=== PATIENT | female | born 1990 | race Caucasian/White ===

== ENCOUNTER 2017-01-24 11:03 | Emergency (ER) | payer OTHER ==
[2017-01-24 11:07] VITALS: TEMP 98; BMI 38.6
--- NOTE | 2017-01-24 11:47 | PDOC ---
History of Present Illness - General Chief Complaint: Syncope/Near Syncope Stated Complaint: DIZZINESS (20 WKS ) Time Seen by Provider: 01/24/17 11:18 History Source: Patient - History of Present Illness Timing/Duration: other (this am) Associated Symptoms: denies: chest pain, fever/chills, headaches, nausea/ vomiting, shortness of breath Past History - Past Medical History Allergies/Adverse Reactions: Allergies Allergy/AdvReac Type Severity Reaction Status Date / Time No Known Allergies Allergy Verified 01/24/17 11:07 Home Medications: Ambulatory Orders NK [No Known Home Medication] 01/24/17 Other medical history: NONE - Psycho/Social/Smoking Cessation Hx Anxiety: No Suicidal Ideation: No Smoking History: Never smoked Hx Alcohol Use: No Drug/Substance Use Hx: No Substance Use Type: None Review of Systems - Review of Systems Constitutional: No: Chills, Fever Respiratory: No: Shortness of Breath Cardiac (ROS): Yes: Lightheadedness, Palpitations. No: Chest Pain, Syncope ABD/GI: No: Abdominal cramping : No: Dysuria, Discharge, Flank Pain, Hematuria Neurological: Yes: Dizziness. No: Headache *Physical Exam - Vital Signs Last Vital Signs Temp Pulse Resp BP Pulse Ox 98.0 F 88 20 127/77 99 01/24/17 11:04 01/24/17 11:04 01/24/17 11:04 01/24/17 11:04 01/24/17 11:04 - Physical Exam General Appearance: Yes: Appropriately Dressed. No: Apparent Distress HEENT: positive: Normal Voice Neck: positive: Supple Respiratory/Chest: positive: Lungs Clear, Normal Breath Sounds. negative: Respiratory Distress Cardiovascular: positive: Regular Rate, S1, S2 Gastrointestinal/Abdominal: negative: Tender Extremity: positive: Normal Inspection Integumentary: positive: Dry, Warm Neurologic: positive: Fully Oriented, Alert, Normal Mood/Affect ED Treatment Course - LABORATORY CBC & Chemistry Diagram: 01/24/17 11:55 01/24/17 11:55 Medical Decision Making - Medical Decision Making 01/24/17 11:43 26-year-old female, no significant history, currently 20 weeks with twins with no issues with so far, here with recurrent dizziness. Patient states while in the shower this morning, she became dizzy, felt her heart racing with ringing in her ears. States she immediately got out of the shower and went to lay down for 20 minutes and felt better but still had some dizziness. States symptoms have since resolved. Denies any chest pain or shortness of breath. No ANDRE or visual changes. Patient states she's had recurrent dizziness throughout her but has never come close to feeling like passing out as she did this a.m. Denies abdominal pain, vaginal bleeding, dysuria, nausea, vomiting, fever or chills. F/u with OB at [facility] See exam 20 week preg w/ recurrent dizziness/near syncope this am No CP or SOB No issues w/ preg so far Denies abd pain, vag bleed at this time Well german and stable in ED w/ unremarkable exam -[email or web address] -discuss further w/u with pt's OB 01/24/17 12:10 Case d/w Dr Bliss, agrees w/ w/u and will come see pt in ED 01/24/17 12:44 EKG and labs unremarkable. Pt remains well german and stable in ED. Seen by Dr Bliss who states pt can be discharged to f/u in clinic this week 01/24/17 13:21 *DC/Admit/Observation/Transfer Diagnosis at time of Disposition: Dizziness - Discharge Dispostion Disposition: HOME Condition at time of disposition: Improved - Referrals Referrals: Chris Artis MD [Primary Care Provider] - - Patient Instructions Printed Discharge Instructions: Managing Symptoms of Additional Instructions: Your symptoms are most likely related to your . Return to the ER if symptoms worsen. Otherwise, follow-up with Dr. Bliss this week
[2017-01-24 12:06] LABS: EOSINOPHIL 0.7 % (0-4.5); MCHC 34.2 g/dl (32.0-36.0); MEAN CELL VOLUME 90.7 fl (80-96); MEAN PLT VOLUME 9.2 fl (7.5-11.1); NEUTROPHILS 80.1 % (42.8-82.8); PLATELET COUNT 221 K/MM3 (134-434); WHITE BLOOD COUNT 13.1 K/mm3 (4.0-10.0)
[2017-01-24 12:31] LABS: ALBUMIN 2.6 g/dl (3.4-5.0); ALK PHOS 75 U/L (45-117); ANION GAP 11 (8-16); BILIRUBIN,TOTAL 0.4 mg/dL (0.2-1.0); CALCIUM 8.9 mg/dL (8.5-10.1); CO2 23 mmol/L (21-32); CREATININE 0.8 mg/dL (0.55-1.02); GLUCOSE,RANDOM 78 mg/dL (74-106); SGOT/AST 15 U/L (15-37); SGPT/ALT 18 U/L (12-78); TOT PROT 6.8 g/dl (6.4-8.2)
[2017-01-24 13:20] LABS: URINE APPEARANCE SLCLOUDY; URINE BILIRUBIN NEGATIVE (NEGATIVE); URINE BLOOD NEGATIVE (NEGATIVE); URINE COLOR LTYELLOW; URINE GLUCOSE (UA) NEGATIVE (NEGATIVE); URINE KETONE NEGATIVE (NEGATIVE); URINE NITRITE NEGATIVE (NEGATIVE); URINE PROTEIN NEGATIVE (NEGATIVE); URINE UROBILINOGEN NEGATIVE E.U./dl (0.2-1.0)
[2017-01-24 13:24] LABS: URINE LEUK ESTERASE TRACE (NEGATIVE)
[2017-01-24 13:25] LABS: URINE BACTERIA RARE /hpf (NONE SEEN); URINE MUCUS RARE; URINE RBC 3 /hpf (0-3); URINE WBC 8 /hpf (3-5)
[2017-01-24 13:59] VITALS: BP 130/82; PULSE 75
--- NOTE | 2017-01-25 11:09 | EKG ---
Test Reason : Blood Pressure : / mmHG Vent. Rate : 086 BPM Atrial Rate : 086 BPM P-R Int : 132 ms QRS Dur : 084 ms QT Int : 366 ms P-R-T Axes : 036 040 010 degrees QTc Int : 437 ms NORMAL SINUS RHYTHM POSSIBLE LEFT ATRIAL ENLARGEMENT CANNOT RULE OUT ANTERIOR INFARCT , AGE UNDETERMINED ABNORMAL ECG NO PREVIOUS ECGS AVAILABLE Confirmed by JACKIE SMITH MD ([id number]) on 01/25/2017 11:09:18 AM Referred By: Confirmed By:JACKIE SMITH MD
== END 2017-01-24 13:59 | disposition home or self-care (01) ==
LOC: JER 11:03
DX: O99.89 Other specified diseases and conditions complicating pregnancy, childbirth and the puerperium (principal); R42 Dizziness and giddiness; Z3A.20 20 weeks gestation of pregnancy
CPT/HCPCS: 36415; 80053; 81003; 81015; 85025; 93005; 93010; 99285-25

== ENCOUNTER 2017-04-19 18:30 | Inpatient (IN) | payer OTHER ==
[2017-04-19] MEDS ORDERED: ELECTROLYTE-148 SOLN 1,000 ML IV ONE (19:15)
[2017-04-19] MEDS ORDERED: TERBUTALINE SULFATE 1 MG/1 ML VIAL SQ ONE (20:15)
[2017-04-19] MEDS ORDERED: BETAMET ACET/BETAMET NA PH 30 MG/5 ML VIAL IM ONE (22:51)
[2017-04-20] MEDS ORDERED: MAGNESIUM SULFATE 20GM/500ML - 500 ML IVPB ONE
[2017-04-20 00:16] VITALS: BMI 42.0
[2017-04-20] MEDS ORDERED: MAGNESIUM 4GM/H20 - 100 ML IVPB ONE (00:22)
[2017-04-20 00:28] LABS: BASOPHIL 0.4 % (0-2.0); EOSINOPHIL 0.7 % (0-4.5); MCH 26.4 pg (25.7-33.7); MCHC 32.6 g/dl (32.0-36.0); MEAN PLT VOLUME 9.8 fl (7.5-11.1); PLATELET COUNT 160 K/MM3 (134-434); RDW 17.8 % (11.6-15.6); WHITE BLOOD COUNT 12.4 K/mm3 (4.0-10.0)
[2017-04-20 00:40] LABS: INR 0.88 (0.82-1.09); PROTHROMBIN TIME (PATIENT) 9.7 SEC (9.98-11.88)
[2017-04-20 00:42] LABS: ACTIVATED PTT 24.4 SECONDS (26.9-34.4)
[2017-04-20 01:11] LABS: ANION GAP 13 (8-16); CALCIUM 9.4 mg/dL (8.5-10.1); CO2 22 mmol/L (21-32); CREATININE 1.1 mg/dL (0.55-1.02); GLUCOSE,RANDOM 71 mg/dL (74-106)
[2017-04-20 01:39] LABS: HIV 1 & 2 AB NEGATIVE; HIV 1 AGp24 NEGATIVE
[2017-04-20] MEDS ORDERED: AMPICILLIN - 2 GM in SODIUM CHLORIDE 100 ML IVPB ONE (01:39)
[2017-04-20] MEDS ORDERED: ELECTROLYTE-148 SOLN 1,000 ML IV ONE (01:42)
--- NOTE | 2017-04-20 03:38 | HP ---
Past Medical History - Primary Care Physician PCP:: Dominic Pineda - Admission Chief Complaint: 32.2 weeks, labor, contraction, passed mucous plug History of Present Illness: 26 yo f edc by sono 06/11/17 c/o low abdominal cramps, back pain . since yesterday, passed mucous plug, no rom, no bleeding, no fever, no dysuria.. fhr cat 1 for both twins, cx closed , soft consistency, no blood History Source: Patient Limitations to Obtaining History: No Limitations (breast augmentation) - Past Medical History ...: 1 ...Para: 0 ...Term: 0 ...: 0 ...Spon : 0 ...Induced : 0 ...Multiple Gestation: 0 ...LMP: 09/06/16 ... Weeks Gestation by Dates: 32.1 ...EDC by Dates: 06/13/17 ...EDC by Sono: 06/11/17 - Past Surgical History Hx Myomectomy: No Hx Transabdominal Cerclage: No - Smoking History Smoking history: Never smoked Have you smoked in the past 12 months: No - Alcohol/Substance Use Hx Alcohol Use: No History of Substance Use: reports: None - Social History Usual Living Arrangement: Yes: With Spouse History of Recent Travel: No Home Medications - Allergies Allergies/Adverse Reactions: Allergies Allergy/AdvReac Type Severity Reaction Status Date / Time No Known Allergies Allergy Verified 04/19/17 19:44 - Home Medications Home Medications: Ambulatory Orders Vit No.130/Iron/FA [ Vitamins] 1 each PO DAILY 03/04/17 Review of Systems - Review of Systems Constitutional: reports: No Symptoms Eyes: reports: No Symptoms HENT: reports: No Symptoms Neck: reports: No Symptoms Cardiovascular: reports: No Symptoms Respiratory: reports: No Symptoms Gastrointestinal: reports: No Symptoms Genitourinary: reports: Frequency Breasts: reports: No Symptoms Reported Musculoskeletal: reports: No Symptoms Integumentary: reports: No Symptoms Neurological: reports: No Symptoms Endocrine: reports: No Symptoms Hematology/Lymphatic: reports: No Symptoms Physical Exam - Maternity Vital Signs: Vital Signs Temperature 98.1 F 04/19/17 23:05 Pulse Rate 94 H 04/19/17 23:05 Respiratory Rate 16 04/19/17 23:05 Blood Pressure 116/72 09/21/17 23:05 O2 Sat by Pulse Oximetry (%) Constitutional: Yes: Obese Eyes: Yes: WNL, Conjunctiva Clear, EOM Intact HENT: Yes: WNL, Atraumatic, Normocephalic Neck: Yes: WNL, Supple, Trachea Midline Cardiovascular: Yes: WNL, Regular Rate and Rhythm Breast(s): Yes: WNL - Abdominal Exam/OB Fundal Height: 38 Presentation: Vertex, Transverse Contractions: Yes Regularity: Irregular Intensity: Moderate Monitor Mode: External Heart Rate Location: LUQ, RL Category: I Accelerations: Uniform Decelerations: None - Vaginal Exam/OB Vaginal Bleediing: No Speculum Exam: No Dilatation (cm): closed Effacement (%): soft Amniotic Membrane Status: Intact - Physical Exam Edema: Yes Edema: LLE: 1+, RLE: 1+ Deep Tendon Reflex Grade: Normal +2 Psychiatric: Yes: WNL - Labs Lab Results: CBC, BMP 04/19/17 23:45 04/19/17 23:45 Hemorrhage Risk Assessment - Risk Factors Medium Risk Factors: Yes: Multiple gestation Risk Score: 1 Risk Level: Medium Risk Problem List - Problems (1) with 32 completed weeks gestation Code(s): Z3A.32 - 32 WEEKS GESTATION OF (2) , twins, antepartum Code(s): O30.009 - TWIN , UNSP NUM PLCNTA & AMNIO SACS, UNSP TRIMESTER Qualifiers: Multiple gestation type: dichorionic and diamniotic Qualified Code(s ): O30.049 - Twin , dichorionic/diamniotic, unspecified trimester (3) Premature labor Code(s): O60.00 - LABOR WITHOUT DELIVERY, UNSPECIFIED TRIMESTER Qualifiers: labor trimester: third trimester Fetus number: fetus 2 of multiple gestation Assessment/Plan cotraction q 2 min , felt by patient, cx soft admit, heart monitoring, Mgso4 tocolysis, celestone rba discussed with patient
[2017-04-20] MEDS ORDERED: AMPICILLIN SODIUM 250 MG VIAL IVPUSH ONE (05:38)
[2017-04-20] MEDS: AMPICILLIN - 1 GM in SODIUM CHLORIDE 100 ML IVPB SCH ×3 (09:30→21:30)
[2017-04-20 11:57] LABS: PH,URINE 5.5 (5.0-8.0); URINE APPEARANCE CLEAR; URINE BILIRUBIN NEGATIVE (NEGATIVE); URINE BLOOD NEGATIVE (NEGATIVE); URINE COLOR LT. YELLOW; URINE GLUCOSE (UA) NEGATIVE (NEGATIVE); URINE KETONE 1+ (NEGATIVE); URINE LEUK ESTERASE NEGATIVE (NEGATIVE); URINE NITRITE NEGATIVE (NEGATIVE); URINE PROTEIN NEGATIVE (NEGATIVE); URINE UROBILINOGEN 0.2 mg/dL (0.2-1.0)
[2017-04-20] MEDS ORDERED: BETAMET ACET/BETAMET NA PH 30 MG/5 ML VIAL IM ONE (22:30)
[2017-04-21 08:49] LABS: ALBUMIN 2.5 g/dl (3.4-5.0); ANION GAP 10 (8-16); CALCIUM 8.1 mg/dL (8.5-10.1); CO2 23 mmol/L (21-32)
[2017-04-21 08:53] LABS: ALK PHOS 115 U/L (45-117); BILIRUBIN,TOTAL 0.5 mg/dL (0.2-1.0); CREATININE 1.3 mg/dL (0.55-1.02); GLUCOSE,RANDOM 130 mg/dL (74-106); SGOT/AST 29 U/L (15-37); SGPT/ALT 36 U/L (12-78); TOT PROT 5.9 g/dl (6.4-8.2)
--- NOTE | 2017-04-21 11:24 | CON.NEP ---
Consult Consult Specialty:: nephrology Reason for Consultation:: ko - History of Present Illness Chief Complaint: cramps History of Present Illness: This is a 26 year old woman with no medical history who presented for labor and has had a rise in creatinine. So nephrology is called. She reports having some loose stools associated with cramping prior to admission. She was able to keep food down however and tried to keep herself hydrated. Has not taken any new medications and has not been sick otherwise. She was started on a magnesium drip and was having some reaction yesterday before it was stopped. Says had a rash and some arm discomfort as well as some dizziness. Her BP was low and she was not making much urine but her urine out put has increased. - History Source History Provided By: Patient, Medical Record Limitations to Obtaining History: No Limitations - Past Medical History ...LMP: 09/03/16 - Past Surgical History Past Surgical History: Yes: None - Alcohol/Substance Use Hx Alcohol Use: No History of Substance Use: reports: None - Smoking History Smoking history: Never smoked Have you smoked in the past 12 months: No - Social History History of Recent Travel: No Home Medications - Allergies Allergies/Adverse Reactions: Allergies Allergy/AdvReac Type Severity Reaction Status Date / Time No Known Allergies Allergy Verified 04/19/17 19:44 - Home Medications Home Medications: Ambulatory Orders Vit No.130/Iron/FA [ Vitamins] 1 each PO DAILY 03/04/17 Family Disease History - Family Disease History Family Disease History: Other: Father (CKD- unknown etiology, predialysis) Review of Systems - Review of Systems Constitutional: reports: Malaise Eyes: reports: No Symptoms HENT: reports: No Symptoms Neck: reports: No Symptoms Cardiovascular: reports: No Symptoms Respiratory: reports: No Symptoms Gastrointestinal: reports: Abdominal Pain, Diarrhea Genitourinary: reports: No Symptoms Breasts: reports: No Symptoms Reported Musculoskeletal: reports: No Symptoms Integumentary: reports: No Symptoms Neurological: reports: No Symptoms Endocrine: reports: No Symptoms Hematology/Lymphatic: reports: No Symptoms Psychiatric: reports: No Symptoms Nephrology Consult - Height Height: 5 ft 3 in - Weight Weight: 237 lb - BMI Body Mass Index (BMI): 42.0 - Lab Results CBC,BMP: CBC, BMP 04/19/17 23:45 04/21/17 06:35 Anion Gap: Anion Gap Anion Gap 10 (8-16) 04/21/17 06:35 - Imaging Ultrasound: Report Reviewed (normal live twin gestation) - Physical Examination Vital Signs: Vital Signs Temperature 98.2 F 04/21/17 11:00 Pulse Rate 103 H 04/21/17 11:00 Respiratory Rate 20 04/21/17 11:00 Blood Pressure 107/72 04/21/17 11:00 O2 Sat by Pulse Oximetry (%) Constitutional: Yes: Well Nourished, No Distress, Calm Eyes: Yes: Conjunctiva Clear HENT: Yes: Atraumatic, Normocephalic Neck: Yes: Supple, Trachea Midline Cardiovascular: Yes: Regular Rate and Rhythm Respiratory: Yes: Regular, CTA Bilaterally Gastrointestinal: Yes: Normal Bowel Sounds, Other () Renal/: Yes: WNL Musculoskeletal: Yes: WNL Extremities: Yes: WNL Edema: Yes Edema: LLE: Trace, RLE: Trace Peripheral Pulses WNL: Yes Integumentary: Yes: WNL Wound/Incision: Yes: Clean/Dry Neurological: Yes: Alert, Oriented Psychiatric: Yes: Alert, Oriented Assessment/Plan IMPRESSION Pt has ko which is likely to be due to hemodynamic reasons. She had diarrhea which didnt seem like much but her creatinine had risen slightly before admission. I suspect her renal function worsened with the hypotensive effects of magnesium which resulted in her lack of urination yesterday and is better today. Her urinalysis from yesterday shows no protein. So there is no reason to suspect a glomerular disorder. PLAN repeat magnesium level continue hydration for now and repeat a bmp in a few hours. If magnesium has come down and creatinine is stable she can be discharged and followed as outpatient thank you MV
--- NOTE | 2017-04-21 11:29 | PN ---
Ante-Partal Exam - Subjective Subjective: Patient without acute complaints. Reports feeling better s/p magnesium. Denies headache, shortness of breath, nausea or vomiting. Denies flushing. Reports movement x 2 Denies leakage of fluid, vaginal bleeding or contractions. Vital Signs: Vital Signs Temperature 98.2 F 04/21/17 11:00 Pulse Rate 103 H 04/21/17 11:00 Respiratory Rate 20 04/21/17 11:00 Blood Pressure 107/72 04/21/17 11:00 O2 Sat by Pulse Oximetry (%) Bleeding: No Headache: No Visual changes: No Right upper quadrant pain: No - Contractions Contractions: No - Exam during Labor Heart Rate: 135 (A and B) Variability: Moderate Category: I Monitor Accelerations: Present Monitor Decelerations: None - Intrapartum Hemorrhage Risk Medium Risk Factors: None High Risk Factors: None Risk Score: 0 Risk Level: Low Risk - Assessment/Plan Assessment/Plan: 26 yo di/di twin gestation admitted with labor, elevated Cr 1. No acute obstetric complaints. No contractions, s/p magnesium and betamethasone 2. Appreciate nephrology consult 3. Discharge planning pending nephrology input
[2017-04-21 13:53] LABS: URINE APPEARANCE CLEAR; URINE BILIRUBIN NEGATIVE (NEGATIVE); URINE BLOOD NEGATIVE (NEGATIVE); URINE COLOR LTYELLOW; URINE GLUCOSE (UA) NEGATIVE (NEGATIVE); URINE KETONE NEGATIVE (NEGATIVE); URINE NITRITE NEGATIVE (NEGATIVE); URINE PROTEIN NEGATIVE (NEGATIVE); URINE UROBILINOGEN NEGATIVE mg/dL (0.2-1.0)
[2017-04-21 13:57] LABS: URINE LEUK ESTERASE 1+ (NEGATIVE)
[2017-04-21 13:59] LABS: URINE BACTERIA RARE /hpf (NONE SEEN); URINE RBC 1 /hpf (0-3); URINE WBC 1 /hpf (3-5)
[2017-04-21 14:08] VITALS: BP 124/54; PULSE 87; TEMP 98.4
--- NOTE | 2017-04-24 09:26 | DS ---
Physical Exam-RADIOLOGY ASSISTANT Vital Signs: Vital Signs Temperature 98.4 F 04/21/17 14:00 Pulse Rate 87 04/21/17 14:00 Respiratory Rate 20 04/21/17 14:00 Blood Pressure 124/54 04/21/17 14:00 O2 Sat by Pulse Oximetry (%) Constitutional: Yes: Well Nourished, No Distress, Calm Eyes: Yes: WNL, Conjunctiva Clear, EOM Intact HENT: Yes: WNL, Atraumatic, Normocephalic Neck: Yes: WNL, Supple, Trachea Midline Cardiovascular: Yes: WNL, Regular Rate and Rhythm Respiratory: Yes: WNL, Regular, CTA Bilaterally Gastrointestinal: Yes: WNL ...Rectal Exam: Yes: WNL Renal/: Yes: WNL Breast(s): Yes: WNL Musculoskeletal: Yes: WNL Extremities: Yes: WNL Integumentary: Yes: WNL Neurological: Yes: WNL, Alert, Oriented ...Motor Strength: WNL Psychiatric: Yes: WNL, Alert, Oriented Labs: CBC, BMP 04/19/17 23:45 04/21/17 13:05 Discharge Summary Reason For Visit: PRE TERM LABOR, twins, 32 weeks Hospital Course: tocolysis with mg so4 , fhr cat 1, , bpp / - Instructions Diet, Activity, Other Instructions: PT INSTRUCTED TO FOLLOW UP WITH DR VERAS AT OFFICE ON Sunday04/24/17, AND TO KEEP SCHEDULED APPOINTMENT WITH DR JIMENEZ ON Sunday04/27/17. PT ALSO INSTRUCTED TO CALL MD AND RETURN TO LABOR & DELIVERY IF C/O UTERINE CONTRACTIONS , DECREASED MOVEMENT, VAGINAL BLEEDING, OR WATER BREAKS. Disposition: HOME - Home Medications Comprehensive Discharge Medication List: Ambulatory Orders Vit No.130/Iron/FA [ Vitamins] 1 each PO DAILY 03/04/17
== END 2017-04-21 14:20 | disposition home or self-care (01) | DRG 563 ==
LOC: JDEL 18:30 → JLDR 23:05
PROVIDERS: ADMIT Obstetrics & Gynecology; ATTEND Obstetrics & Gynecology
DX: O60.03 Preterm labor without delivery, third trimester (principal); O30.043 Twin pregnancy, dichorionic/diamniotic, third trimester; N17.9 Acute kidney failure, unspecified; Z3A.32 32 weeks gestation of pregnancy; Z68.41 Body mass index [BMI] 40.0-44.9, adult
CPT/HCPCS: 36415; 76817-TC; 76819-TC; 80048; 80053; 81003; 81015; 82565; 83735; 85025; 85610; 85730; 86593; 86850; 86870; 86900; 86901; 86902; 87086; 87389; 96372

== ENCOUNTER 2017-05-21 06:55 | Inpatient (IN) | payer OTHER ==
[2017-05-21] MEDS ORDERED: CITRIC ACID/SODIUM CITRATE 30 ML UNIT-DOSE CUP PO ONE (07:15)
[2017-05-21] MEDS ORDERED: ELECTROLYTE-148 SOLN 500 ML IV SCH ×2 (07:15→07:45)
[2017-05-21 08:15] VITALS: BMI 41.4
[2017-05-21 08:22] LABS: ALBUMIN 2.4 g/dl (3.4-5.0); ALK PHOS 184 U/L (45-117); ANION GAP 10 (8-16); BILIRUBIN,TOTAL 0.6 mg/dL (0.2-1.0); CALCIUM 8.8 mg/dL (8.5-10.1); CO2 20 mmol/L (21-32); CREATININE 1.5 mg/dL (0.55-1.02); GLUCOSE,RANDOM 74 mg/dL (74-106); SGOT/AST 14 U/L (15-37); SGPT/ALT 12 U/L (12-78); TOT PROT 6.5 g/dl (6.4-8.2)
[2017-05-21] MEDS ORDERED: ONDANSETRON 4 MG/2 ML VIAL IVPUSH PRN (08:45)
[2017-05-21] MEDS ORDERED: IBUPROFEN 600 MG TABLET (FP) PO PRN ×2 (08:45→10:43)
--- NOTE | 2017-05-21 09:21 | HP ---
Past Medical History - Admission History of Present Illness: 26 yo @ 37 0/7 wks, by first trimester ultrasound, EDC 06/11/2107 complicated by: 1. Di/Di twin gestation, spontaneous concordant growth, last EFW A: 1944g (34%); B: 1791 (22%) 2. Maternal Obesity - normal GCT 3. s/p admission for PTL 04/19-04/20, s/p BMZ 4. Acute renal insufficiency - unknown etiology s/p nephrology consult last Creatine 1.2 (05/10/17), 24 H uprotein 280, creatine clearance 49 ml/min ( 05/11/17) Patient presents for primary delivery. She reports no complaints, no leakage of fluid or vaginal bleeding. She endorses movement x 2. History Source: Patient Limitations to Obtaining History: No Limitations - Past Medical History Cardiovascular: No: HTN Pulmonary: No: Asthma Gastrointestinal: No: GERD ...: 1 ...Para: 0 ...LMP: 09/06/16 ...EDC by Dates: 06/13/17 ...EDC by Sono: 06/11/17 Heme/Onc: No: Anemia - Past Surgical History Hx Myomectomy: No Hx Transabdominal Cerclage: No Additional Surgical History: bilateral breast implants - Smoking History Smoking history: Never smoked Have you smoked in the past 12 months: No - Alcohol/Substance Use Hx Alcohol Use: No History of Substance Use: reports: None - Social History History of Recent Travel: No Home Medications - Allergies Allergies/Adverse Reactions: Allergies Allergy/AdvReac Type Severity Reaction Status Date / Time No Known Allergies Allergy Verified 05/08/17 12:24 - Home Medications Home Medications: Ambulatory Orders Vit No.130/Iron/FA [ Vitamins] 1 each PO DAILY 03/04/17 Family Disease History - Family Disease History Family History: Denies Family Disease History: Other: Father (CKD- unknown etiology, predialysis) Review of Systems - Review of Systems Constitutional: reports: No Symptoms Neck: reports: No Symptoms Cardiovascular: reports: No Symptoms Respiratory: reports: No Symptoms Gastrointestinal: reports: No Symptoms Breasts: reports: No Symptoms Reported Musculoskeletal: reports: No Symptoms Integumentary: reports: No Symptoms Neurological: reports: No Symptoms Endocrine: reports: No Symptoms Hematology/Lymphatic: reports: No Symptoms Psychiatric: reports: No Symptoms Physical Exam - Maternity Vital Signs: Vital Signs Temperature 98.2 F 05/21/17 07:45 Pulse Rate 98 H 05/21/17 07:45 Respiratory Rate 18 05/21/17 07:45 Blood Pressure 138/72 05/21/17 07:45 O2 Sat by Pulse Oximetry (%) Constitutional: Yes: Well Nourished, No Distress, Calm Cardiovascular: Yes: Regular Rate and Rhythm Lungs: Clear to auscultation - Abdominal Exam/OB Number of Fetuses: Multiple Contractions: No Category: I - Physical Exam Psychiatric: Yes: Alert, Oriented - Labs Lab Results: CBC, BMP 05/21/17 07:30 PNL: O neagtive, antibody negative; RPR NR; HBS Ag negative; Rubella Immune; HIV negative; GBS negative Hemorrhage Risk Assessment - Risk Factors Medium Risk Factors: Yes: None High Risk Factors: Yes: None Risk Score: 1 Risk Level: Medium Risk Assessment/Plan 26 yo @ 37 0/7 wks for primary delivery 1. Admit to L&D 2. Patient declined offer for vaginal delivery of twins. Discussed risks including but not limited to infection, bleeding requiring transfusion and damage to surrounding organs such as the bowel or bladder. Discussed risk of injury to infant. Discussed risk of wound infection and separation. Discussed need for planning of future children and possibility of abnormal placentation. 3. GBS negative 4. Renal insufficiency - did not go for nephrology consultation last week as instructed, Cr this AM 1.5. Plan for nephrology consultation after delivery. 5. Ancef 2 g color control supervisor to OR 6. Will proceed to OR.
[2017-05-21] MEDS ORDERED: METHYLERGONOVINE MALEATE 0.2 MG/1 ML AMP IM PRN (10:43)
[2017-05-21] MEDS ORDERED: IBUPROFEN 800 MG/8 ML IJ IVPB PRN (10:43)
[2017-05-21] MEDS ORDERED: BENZOCAINE 28 GM HEMORRHOIDAL OINTMENT TP PRN (10:43)
[2017-05-21] MEDS ORDERED: BENZOCAINE 20% 57 GM BOTTLE TP PRN (10:43)
[2017-05-21] MEDS ORDERED: WITCH HAZEL 50% (TUCKS) 40 PAD/JAR PAD TP PRN (10:43)
--- NOTE | 2017-05-21 10:46 | PN ---
Delivery - Delivery Section: Primary Episiotomy/Laceration: None EBL (cc): 800 Delivery, Single - Stages of Labor Placenta: Yes: Expressed - [place] Feeding Plan Initial Plan: Exclusive throughout hospitalization Delivery, Multiple Births - Condition of Multiple Births 1 (A) Legal Billing Coordinator/Vinegar Maker Present: Yes Gender: Female Weight: 4 lb 15 oz Position: OA Placenta: Yes: Expressed 2 (B) Gender: Female Weight: 3 lb 14 oz Position: Right, OA Placenta: Yes: Expressed - 1 (A) 1 Minute Score: 8 1 (A) 5 Minutes Score: 9 2 (B) 1 Minute Score: 9 [place] 2 (B) 5 Minutes Score: 9 Remarks - Remarks Remarks: Surgeon: Izaiah Assist: Amos Anesthesia: Enyithomas Indication: 37 wk di/di twins, worsening renal insufficiency EBL: 800 UOP: 100 IVF: 1200 Dictation:[id number]
--- NOTE | 2017-05-21 11:58 | PN ---
Progress Note (short form) - Note Progress Note: In light of acute renal insufficiency, plan for nephrology consult. Will also plan for strict I/O and daily weights Will continue to monitor for signs of worsening insufficiency and also for signs of fluid overload/pulmonary edema
[2017-05-21] MEDS: OXYTOCIN 20 UNITS in 0.9% NS 1,000 ML IV SCH (12:15)
[2017-05-21] MEDS ORDERED: TUBERCULIN PPD 5 TU/0.1ML SYRINGE (IN PATIENT USE ONLY) ID ONE (15:00)
--- NOTE | 2017-05-21 18:12 | CONSULT ---
Consult Consult Specialty:: Nephrology Reason for Consultation:: HLOLY - History of Present Illness Chief Complaint: pt presents for delivery History of Present Illness: Pt is a 26 year old female who presents to the hospital for . She was found to have elevated creatinine and I was called to evaluate her. She had the operation today. She has been seeing a manager of purchasing for elevated creatinine with the [facility]. She says her last creatinine was about 1.2. She says she did have blood work done with him and was not aware of any finding other than creatinine. Her creatinine started to rise on March of this year. She denies nsaid use. She does have a family history of kidney disease. Her father had renal failure as did her grandmother. She also knows of two aunts on her fathers side that have kidney disease. She does not know what the etiology is. She denies having elevated blood pressures. She denies lower extremity edema. She denies dysuria or hematuria. - History Source History Provided By: Patient - Past Medical History Cardio/Vascular: No: HTN Pulmonary: No: Asthma Gastrointestinal: No: GERD Renal/: Yes: Renal Inusuff ...LMP: 09/03/16 - Past Surgical History Past Surgical History: Yes: Additional Surgical History: bilateral breast implants - Alcohol/Substance Use Hx Alcohol Use: No History of Substance Use: reports: None - Smoking History Smoking history: Never smoked Have you smoked in the past 12 months: No - Social History History of Recent Travel: No Home Medications - Allergies Allergies/Adverse Reactions: Allergies Allergy/AdvReac Type Severity Reaction Status Date / Time No Known Allergies Allergy Verified 05/08/17 12:24 - Home Medications Home Medications: Ambulatory Orders Vit No.130/Iron/FA [ Vitamins] 1 each PO DAILY 03/04/17 Family Disease History - Family Disease History Family Disease History: Other: Father (CKD- unknown etiology, predialysis) Review of Systems - Review of Systems Constitutional: reports: No Symptoms Eyes: reports: No Symptoms HENT: reports: No Symptoms Neck: reports: No Symptoms Cardiovascular: reports: No Symptoms Respiratory: reports: No Symptoms Gastrointestinal: reports: No Symptoms Genitourinary: reports: Other (s/p ) Musculoskeletal: reports: No Symptoms Neurological: reports: No Symptoms Endocrine: reports: No Symptoms Physical Exam Vital Signs: Vital Signs Temperature 97.9 F 10/23/17 13:10 Pulse Rate 73 05/21/17 13:10 Respiratory Rate 20 05/21/17 17:00 Blood Pressure 116/65 05/21/17 13:10 O2 Sat by Pulse Oximetry (%) 100 05/21/17 11:40 Constitutional: Yes: Calm Eyes: Yes: Conjunctiva Clear HENT: Yes: Atraumatic Cardiovascular: Yes: S1, S2 Respiratory: Yes: CTA Bilaterally Gastrointestinal: Yes: Soft, Other (dressing in place) Renal/: Yes: WNL Musculoskeletal: Yes: WNL Edema: No Neurological: Yes: Oriented Psychiatric: Yes: Oriented Labs: CBC, BMP 05/21/17 07:30 Laboratory Tests 01/24/17 04/19/17 04/21/17 11:55 23:45 06:35 Sodium Carbon Dioxide Anion Gap BUN Creatinine 0.8 1.1 H D 1.3 H 04/21/17 05/15/17 05/21/17 13:05 13:45 07:30 Sodium 136 Carbon Dioxide 20 L Anion Gap 10 BUN 19 H Creatinine 1.2 H 1.3 H 1.5 H Imaging - Results Ultrasound: Report Reviewed Problem List - Problems (1) CKD (chronic kidney disease) Code(s): N18.9 - CHRONIC KIDNEY DISEASE, UNSPECIFIED Assessment/Plan Current Medications Generic Name Dose Route Start Last Admin Trade Name Freq PRN Reason Stop Dose Admin Acetaminophen 650 mg 05/21/17 08:45 Tylenol - PO Q4H PRN FEVER OR PAIN Benzocaine 1 applic 05/21/17 10:43 Americaine Ointment - TP PRN PRN PAIN Benzocaine 1 spray 05/21/17 10:43 Americaine 20% [place] - TP PRN PRN PAIN Bisacodyl 10 mg 05/22/17 10:43 Dulcolax Suppository - RC PRN PRN CONSTIPATION Diphenhydramine HCl 25 mg 05/21/17 08:45 Benadryl Injection - IVPUSH Q4H PRN Pruritis Enoxaparin Sodium 40 mg 05/22/17 10:00 Lovenox - SQ DAILY HAYLEE Ferrous Sulfate 325 mg 05/21/17 22:00 Feosol - PO BID HAYLEE Oxytocin/Sodium Chloride 1,000 mls @ 125 mls/hr 05/21/17 10:45 05/21/17 12:15 Normal Saline+20 Units Oxytocin - IV 125 mls/hr ASDIR HAYLEE Administration Ibuprofen 600 mg 05/21/17 08:45 Motrin - PO Q4H PRN PAIN Ibuprofen 600 mg 05/21/17 10:43 Motrin - PO Q4H PRN PAIN Ibuprofen 800 mg 05/21/17 10:43 05/21/17 12:25 Caldolor Injection - IVPB 800 mg Q8H PRN Administration PAIN OR FEVER Methylergonovine Maleate 0.2 mg 05/21/17 10:43 Methergine Injection - IM Q4H PRN Excessive Bleeding (L&D) Oxycodone HCl 5 mg 05/21/17 10:43 Roxicodone - PO Q4H PRN PAIN LEVEL 1-5 Oxycodone HCl 10 mg 05/21/17 10:43 Roxicodone - PO Q4H PRN PAIN LEVEL 6-10 Senna/Docusate Sodium 2 tablet 05/21/17 10:43 Pericolace - PO HS PRN CONSTIPATION Simethicone 80 mg 05/21/17 10:43 Mylicon - PO Q4H PRN GAS Witch Samantha/Glycerin 1 pad 05/21/17 10:43 Tucks Pads - TP PRN PRN PAIN Impression 1. CKD 2. s/p Plan - renal ultrasound reviewed from 05/08 and the kidney appears normal with no hydro - repeat labs in am - check ua - recommend avoiding nsaids such as ibuprofen - will need to review outpt renal workup - will make more recommendations after reviewing ua Dr Cortez
[2017-05-21 21:00] LABS: URINE APPEARANCE CLEAR; URINE BILIRUBIN NEGATIVE (NEGATIVE); URINE BLOOD 1+ (NEGATIVE); URINE COLOR STRAW; URINE GLUCOSE (UA) NEGATIVE (NEGATIVE); URINE KETONE NEGATIVE (NEGATIVE); URINE NITRITE NEGATIVE (NEGATIVE); URINE PROTEIN NEGATIVE (NEGATIVE); URINE UROBILINOGEN NEGATIVE mg/dL (0.2-1.0)
[2017-05-21 21:14] LABS: URINE MUCUS RARE; URINE RBC 2 /hpf (0-3); URINE WBC 1 /hpf (3-5)
[2017-05-21 22:43] LABS: URINE LEUK ESTERASE Negative (NEGATIVE)
[2017-05-21] MEDS: ACETAMINOPHEN 1000 MG/100 ML VIAL (NON FORMULARY) IVPB PRN (22:52)
[2017-05-21] MEDS: FERROUS SO4 325 MG TABLET (FP) PO SCH (22:53)
[2017-05-22] MEDS: ACETAMINOPHEN 1000 MG/100 ML VIAL (NON FORMULARY) IVPB PRN (04:47)
[2017-05-22 07:27] LABS: BASOPHIL 0.7 % (0-2.0); EOSINOPHIL 0.7 % (0-4.5); MCH 25.2 pg (25.7-33.7); MCHC 32.8 g/dl (32.0-36.0); MEAN PLT VOLUME 8.7 fl (7.5-11.1); PLATELET COUNT 144 K/MM3 (134-434); RDW 20.2 % (11.6-15.6); WHITE BLOOD COUNT 10.2 K/mm3 (4.0-10.0)
[2017-05-22 08:01] LABS: CALCIUM 8.1 mg/dL (8.5-10.1)
--- NOTE | 2017-05-22 08:07 | OP ---
DATE OF OPERATION: 05/21/2017 ATTENDING PHYSICIAN RESPONSIBLE FOR SIGNING REPORT: Kristen Bliss MD PREOPERATIVE DIAGNOSES: Intrauterine , dichorionic diamniotic twin at 37 weeks, worsening renal insufficiency. POSTOPERATIVE DIAGNOSES: Intrauterine dichorionic diamniotic twin at 37 weeks, worsening renal insufficiency. SURGEON: Kristen Bliss MD HAND SCRAPER: Navid Trinidad MD ANESTHESIA: Casey Mooney MD ESTIMATED BLOOD LOSS: 800 URINE OUTPUT: 100 INTRAVENOUS FLUIDS: 1200 INDICATION: Patient is a 26-year-old, 1, para 0 at 37 weeks with spontaneous dichorionic diamniotic twin gestation with worsening renal insufficiency, recommended delivery at 37 weeks by [facility] Nephrology for primary . She declined offer for vaginal delivery of twins. She was counseled regarding risks, benefits, alternatives, and complications of procedure including infection; bleeding; damage to surrounding organs such as bowel, bladder, ureters; injury to infants. She expressed understanding, was brought to the operating room. DESCRIPTION OF PROCEDURE: When anesthesia was found to be adequate, patient was prepped and draped in normal sterile fashion and placed in dorsal supine position with leftward tilt. An approximately 11-cm skin incision was made with a knife and carried down to the underlying rectus muscles using the Bovie electrocautery. The fascia was nicked in the midline, extended laterally using Rdz scissors. Inferior portion of the incision was tented up using Lm clamps and dissected off the underlying rectus muscles using the Rdz scissors. Attention was brought to the superior portion where, in a similar fashion, was tented up using Lm clamps, dissected off the underlying rectus muscles using the Rdz scissors. The rectus muscles were in the midline, and the peritoneum was entered bluntly. The peritoneal incision was extended superiorly and inferiorly using the Metzenbaum scissors. The vesicouterine peritoneum was identified, entered sharply, and a bladder flap was created digitally. The hysterotomy made with the knife and extended using bandage scissors. Amniotomy was performed. Clear fluid was noted. 's head was brought to the hysterotomy site and delivered, followed by shoulders and body without difficulty. The cord was clamped and cut. The was handed to waiting NICU staff. Cord blood was collected and sent. Second sac was identified, and amniotomy was performed. Clear fluid was noted. Infant's head was brought to the hysterotomy site. 's head was delivered, followed by shoulders and body without difficulty. Cord was clamped and cut. Infant was handed to waiting NICU staff. The cord blood was collected and sent. Placenta was extracted. The uterus was cleared of all clot and debris. The uterus was closed using 0 Biosyn in a running layer with a second layer was an imbricated layer. The vesicouterine peritoneum was identified and reapproximated using 0 Biosyn in a running fashion. Copious irrigation was performed. Bilateral adnexa were found to be normal. The peritoneum was closed using 2-0 Biosyn in a running fashion. The rectus muscles were reapproximated interruptedly using 0 Biosyn in interrupted fashion. The fascia was closed using 0 Vicryl in a running fashion. The subcutaneous fat was closed using 0 Vicryl and 2-0 Vicryl in a running fashion. The skin was reapproximated using 3 -0 Vicryl. The patient tolerated the procedure well. Estimated blood loss was 800 mL. Patient was brought to recovery room in stable condition. Rae [id number] MTDD
[2017-05-22 08:08] LABS: ALBUMIN 2.2 g/dl (3.4-5.0); ALK PHOS 151 U/L (45-117); ANION GAP 13 (8-16); BILIRUBIN,TOTAL 0.8 mg/dL (0.2-1.0); CO2 20 mmol/L (21-32); CREATININE 1.4 mg/dL (0.55-1.02); GLUCOSE,RANDOM 79 mg/dL (74-106); SGOT/AST 21 U/L (15-37); SGPT/ALT 11 U/L (12-78); TOT PROT 5.8 g/dl (6.4-8.2)
[2017-05-22] MEDS ORDERED: IBUPROFEN 800 MG/8 ML IJ IVPB PRN (08:23)
[2017-05-22] MEDS: SIMETHICONE 80 MG TAB.CHEW (FP) PO PRN ×4 (08:24→22:01)
[2017-05-22] MEDS: oxyCODONE HCL 5 MG TABLET PO PRN ×4 (08:24→22:02)
--- NOTE | 2017-05-22 08:28 | PN ---
Progress Note (short form) - Note Progress Note: Post op day#1.S/P C section under spinal anesthesia with duramorph uneventful.Patient stable and c/o pain score of 4-5/10.So put patient on caldolor ivpb.No any anesthesia related problem.Patient Dc from the anesthesia care.
--- NOTE | 2017-05-22 08:31 | PN ---
Post Progress Note - Subjective Subjective: Pain well controlled, eating regular diet in bed, + flatus Post Day: 1 Type of Delivery: Primary C/S Vital Signs: Vital Signs Temperature 98.1 F 05/22/17 04:56 Pulse Rate 71 05/22/17 04:56 Respiratory Rate 20 05/22/17 08:00 Blood Pressure 106/57 05/22/17 04:56 O2 Sat by Pulse Oximetry (%) 100 05/21/17 11:40 Breast Exam: Yes: Soft Uterus: Yes: Fundus Firm Incision: Yes: Dressing dry and intact Abdomen/GI: Yes: Abdomen soft, Passing flatus, Tolerating PO Lochia: Yes: Rubra Lochia, amount: Small Extremities: Yes: Calves non-tender - Labs Labs: CBC WBC 10.2 K/mm3 (4.0-10.0) H 05/22/17 06:30 RBC 3.63 M/mm3 (3.60-5.2) 05/22/17 06:30 Hgb 9.2 GM/dL (10.7-15.3) L 05/22/17 06:30 Hct 28.0 % (32.4-45.2) L 05/22/17 06:30 MCV 77.0 fl (80-96) L 05/22/17 06:30 MCH 25.2 pg (25.7-33.7) L 05/22/17 06:30 MCHC 32.8 g/dl (32.0-36.0) 05/22/17 06:30 RDW 20.2 % (11.6-15.6) H 05/22/17 06:30 Plt Count 144 K/MM3 (134-434) D 05/22/17 06:30 MPV 8.7 fl (7.5-11.1) 05/22/17 06:30 Neutrophils % 76.0 % (42.8-82.8) 05/22/17 06:30 Lymphocytes % 16.8 % (8-40) 05/22/17 06:30 Monocytes % 5.8 % (3.8-10.2) 05/22/17 06:30 Eosinophils % 0.7 % (0-4.5) 05/22/17 06:30 Basophils % 0.7 % (0-2.0) 05/22/17 06:30 Assessment/Plan 26yo P 1 now s/p 1' c/s for twins with worsening renal insufficiency at term, strong family history of renal disease Renal consult input appreciated, all NSAIds d/cassie Today creatinine and creatinine clearance is improving cont. voiding trial, repeat blood Chemistry 05/23/17 Insentive spiromiter ordered H/H stable [place] ambulation
[2017-05-22] MEDS: ENOXAPARIN NA (PORCINE) 40 MG/0.4 ML DISP.SYRIN SQ SCH (09:47)
[2017-05-22] MEDS: FERROUS SO4 325 MG TABLET (FP) PO SCH ×2 (09:47→22:01)
[2017-05-22] MEDS ORDERED: BISACODYL 10 MG SUPP.RECT RC PRN (10:43)
[2017-05-22 11:29] LABS: URINE CREATININE 22.5 mg/dL (20-320)
[2017-05-22] MEDS: ACETAMINOPHEN 325 MG TABLET (FP) PO PRN ×3 (12:34→22:02)
--- NOTE | 2017-05-22 16:53 | PN ---
Progress Note, Physician History of Present Illness: Pt seen and examined at bedside. She is awake and alert. She denies shortness of breath. - Current Medication List Current Medications: Active Medications Acetaminophen (Tylenol -) 650 mg PO Q4H PRN PRN Reason: FEVER OR PAIN Last Admin: 05/22/17 12:34 Dose: 650 mg Acetaminophen (Ofirmev Injection -) 1,000 mg IVPB Q6H PRN Last Admin: 05/22/17 04:47 Dose: 1,000 mg Benzocaine (Americaine Ointment -) 1 applic TP PRN PRN PRN Reason: PAIN Benzocaine (Americaine 20% [place] -) 1 spray TP PRN PRN PRN Reason: PAIN Bisacodyl (Dulcolax Suppository -) 10 mg RC PRN PRN PRN Reason: CONSTIPATION Diphenhydramine HCl (Benadryl Injection -) 25 mg IVPUSH Q4H PRN PRN Reason: Pruritis Last Admin: 05/22/17 00:14 Dose: 25 mg Enoxaparin Sodium (Lovenox -) 40 mg SQ DAILY [facility] Last Admin: 05/22/17 09:47 Dose: 40 mg Ferrous Sulfate (Feosol -) 325 mg PO BID [facility] Last Admin: 05/22/17 09:47 Dose: 325 mg Oxytocin/Sodium Chloride (Normal Saline+20 Units Oxytocin -) 1,000 mls @ 125 mls/hr IV ASDIR [facility] Last Admin: 05/21/17 12:15 Dose: 125 mls/hr Methylergonovine Maleate (Methergine Injection -) 0.2 mg IM Q4H PRN PRN Reason: Excessive Bleeding (L&D) Oxycodone HCl (Roxicodone -) 5 mg PO Q4H PRN PRN Reason: PAIN LEVEL 1-5 Last Admin: 05/22/17 08:24 Dose: 5 mg Oxycodone HCl (Roxicodone -) 10 mg PO Q4H PRN PRN Reason: PAIN LEVEL 6-10 Last Admin: 05/22/17 12:34 Dose: 10 mg Senna/Docusate Sodium (Pericolace -) 2 tablet PO HS PRN PRN Reason: CONSTIPATION Simethicone (Mylicon -) 80 mg PO Q4H PRN PRN Reason: GAS Last Admin: 05/22/17 12:34 Dose: 80 mg Witch Samantha/Glycerin (Tucks Pads -) 1 pad TP PRN PRN PRN Reason: PAIN - Objective Vital Signs: Vital Signs Temperature 99 F 05/22/17 14:00 Pulse Rate 83 05/22/17 14:00 Respiratory Rate 20 05/22/17 14:00 Blood Pressure 115/64 05/22/17 14:00 O2 Sat by Pulse Oximetry (%) 100 05/21/17 11:40 Constitutional: Yes: Calm Eyes: Yes: Conjunctiva Clear HENT: Yes: Atraumatic Neck: Yes: Supple Cardiovascular: Yes: S1, S2 Respiratory: Yes: CTA Bilaterally Gastrointestinal: Yes: Soft Genitourinary: Yes: Other (s/p ) Musculoskeletal: Yes: WNL Edema: No Neurological: Yes: Oriented Psychiatric: Yes: Oriented Labs: CBC, BMP 05/22/17 06:30 05/22/17 06:30 Problem List - Problems (1) CKD (chronic kidney disease) Code(s): N18.9 - CHRONIC KIDNEY DISEASE, UNSPECIFIED Assessment/Plan Current Medications Generic Name Dose Route Start Last Admin Trade Name Freq PRN Reason Stop Dose Admin Acetaminophen 650 mg 05/21/17 08:45 05/22/17 12:34 Tylenol - PO 650 mg Q4H PRN Administration FEVER OR PAIN Acetaminophen 1,000 mg 05/21/17 22:37 05/22/17 04:47 Ofirmev Injection - IVPB 1,000 mg Q6H PRN Administration Benzocaine 1 applic 05/21/17 10:43 Americaine Ointment - TP PRN PRN PAIN Benzocaine 1 spray 05/21/17 10:43 Americaine 20% [place] - TP PRN PRN PAIN Bisacodyl 10 mg 05/22/17 10:43 Dulcolax Suppository - RC PRN PRN CONSTIPATION Diphenhydramine HCl 25 mg 05/21/17 08:45 05/22/17 00:14 Benadryl Injection - IVPUSH 25 mg Q4H PRN Administration Pruritis Enoxaparin Sodium 40 mg 05/22/17 10:00 05/22/17 09:47 Lovenox - SQ 40 mg DAILY HAYLEE Administration Ferrous Sulfate 325 mg 05/21/17 22:00 05/22/17 09:47 Feosol - PO 325 mg BID HAYLEE Administration Oxytocin/Sodium Chloride 1,000 mls @ 125 mls/hr 05/21/17 10:45 05/21/17 12:15 Normal Saline+20 Units Oxytocin - IV 125 mls/hr ASDIR HAYLEE Administration Methylergonovine Maleate 0.2 mg 05/21/17 10:43 Methergine Injection - IM Q4H PRN Excessive Bleeding (L&D) Oxycodone HCl 5 mg 05/21/17 10:43 05/22/17 08:24 Roxicodone - PO 5 mg Q4H PRN Administration PAIN LEVEL 1-5 Oxycodone HCl 10 mg 05/21/17 10:43 05/22/17 12:34 Roxicodone - PO 10 mg Q4H PRN Administration PAIN LEVEL 6-10 Senna/Docusate Sodium 2 tablet 05/21/17 10:43 Pericolace - PO HS PRN CONSTIPATION Simethicone 80 mg 05/21/17 10:43 05/22/17 12:34 Mylicon - PO 80 mg Q4H PRN Administration GAS Witch Samantha/Glycerin 1 pad 05/21/17 10:43 Tucks Pads - TP PRN PRN PAIN Laboratory Tests 05/21/17 05/22/17 18:30 09:45 Urine Protein Negative Urine Blood 1+ H Protein/Creatinin Ratio 0.35 Impression 1. CKD 2. s/p 3. 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
[2017-05-22] MEDS: SENNOSIDES/DOCUSATE COMBO (SENNA PLUS) TABLET (UD) PO PRN (22:01)
[2017-05-23] MEDS: ACETAMINOPHEN 325 MG TABLET (FP) PO PRN ×5 (02:05→22:23)
[2017-05-23] MEDS: SIMETHICONE 80 MG TAB.CHEW (FP) PO PRN ×4 (02:05→22:22)
[2017-05-23] MEDS: oxyCODONE HCL 5 MG TABLET PO PRN ×5 (02:06→22:23)
--- NOTE | 2017-05-23 09:10 | PN ---
Post Progress Note - Subjective Subjective: No complaints, feels well Post Day: 2 Type of Delivery: Primary C/S Vital Signs: Vital Signs Temperature 98.1 F 05/22/17 22:00 Pulse Rate 85 05/22/17 22:00 Respiratory Rate 18 05/22/17 22:00 Blood Pressure 126/81 05/22/17 22:00 O2 Sat by Pulse Oximetry (%) 100 05/21/17 11:40 Breast Exam: Yes: Soft Uterus: Yes: Fundus Firm Incision: Yes: Sutures intact Abdomen/GI: Yes: Abdomen soft, Tolerating PO Lochia: Yes: Rubra Lochia, amount: Small Extremities: Yes: Calves non-tender, Edema (trace) Perineum: Yes: Intact Activity: Ambulating - Labs Labs: CBC WBC 10.2 K/mm3 (4.0-10.0) H 05/22/17 06:30 RBC 3.63 M/mm3 (3.60-5.2) 05/22/17 06:30 Hgb 9.2 GM/dL (10.7-15.3) L 05/22/17 06:30 Hct 28.0 % (32.4-45.2) L 05/22/17 06:30 MCV 77.0 fl (80-96) L 05/22/17 06:30 MCH 25.2 pg (25.7-33.7) L 05/22/17 06:30 MCHC 32.8 g/dl (32.0-36.0) 05/22/17 06:30 RDW 20.2 % (11.6-15.6) H 05/22/17 06:30 Plt Count 144 K/MM3 (134-434) D 05/22/17 06:30 MPV 8.7 fl (7.5-11.1) 05/22/17 06:30 Neutrophils % 76.0 % (42.8-82.8) 05/22/17 06:30 Lymphocytes % 16.8 % (8-40) 05/22/17 06:30 Monocytes % 5.8 % (3.8-10.2) 05/22/17 06:30 Eosinophils % 0.7 % (0-4.5) 05/22/17 06:30 Basophils % 0.7 % (0-2.0) 05/22/17 06:30 Assessment/Plan 26yo P1 s/p primary LT C/S, doing well stable, afebrile. Chem/creat are pending. care instructions reviewed. Continue routine postop care. Ambulation encouraged
[2017-05-23 09:22] LABS: ALBUMIN 2.4 g/dl (3.4-5.0); ALK PHOS 149 U/L (45-117); ANION GAP 13 (8-16); BILIRUBIN,TOTAL 0.4 mg/dL (0.2-1.0); CALCIUM 8.1 mg/dL (8.5-10.1); CO2 23 mmol/L (21-32); CREATININE 1.3 mg/dL (0.55-1.02); GLUCOSE,RANDOM 109 mg/dL (74-106); SGOT/AST 37 U/L (15-37); SGPT/ALT 17 U/L (12-78); TOT PROT 6.2 g/dl (6.4-8.2)
[2017-05-23] MEDS: FERROUS SO4 325 MG TABLET (FP) PO SCH ×2 (09:55→22:24)
[2017-05-23] MEDS: ENOXAPARIN NA (PORCINE) 40 MG/0.4 ML DISP.SYRIN SQ SCH (09:55)
--- NOTE | 2017-05-23 11:20 | PN ---
Progress Note, Physician History of Present Illness: Pt seen and examined at bedside. She is awake and alert. She denies dysuria. - Current Medication List Current Medications: Active Medications Acetaminophen (Tylenol -) 650 mg PO Q4H PRN PRN Reason: FEVER OR PAIN Last Admin: 05/23/17 11:04 Dose: 650 mg Acetaminophen (Ofirmev Injection -) 1,000 mg IVPB Q6H PRN Last Admin: 05/22/17 04:47 Dose: 1,000 mg Benzocaine (Americaine Ointment -) 1 applic TP PRN PRN PRN Reason: PAIN Benzocaine (Americaine 20% [place] -) 1 spray TP PRN PRN PRN Reason: PAIN Bisacodyl (Dulcolax Suppository -) 10 mg RC PRN PRN PRN Reason: CONSTIPATION Diphenhydramine HCl (Benadryl Injection -) 25 mg IVPUSH Q4H PRN PRN Reason: Pruritis Last Admin: 05/22/17 00:14 Dose: 25 mg Enoxaparin Sodium (Lovenox -) 40 mg SQ DAILY [facility] Last Admin: 05/23/17 09:55 Dose: 40 mg Ferrous Sulfate (Feosol -) 325 mg PO BID [facility] Last Admin: 05/23/17 09:55 Dose: 325 mg Oxytocin/Sodium Chloride (Normal Saline+20 Units Oxytocin -) 1,000 mls @ 125 mls/hr IV ASDIR [facility] Last Admin: 05/21/17 12:15 Dose: 125 mls/hr Methylergonovine Maleate (Methergine Injection -) 0.2 mg IM Q4H PRN PRN Reason: Excessive Bleeding (L&D) Oxycodone HCl (Roxicodone -) 5 mg PO Q4H PRN PRN Reason: PAIN LEVEL 1-5 Last Admin: 05/23/17 11:03 Dose: 5 mg Oxycodone HCl (Roxicodone -) 10 mg PO Q4H PRN PRN Reason: PAIN LEVEL 6-10 Last Admin: 05/23/17 02:06 Dose: 10 mg Senna/Docusate Sodium (Pericolace -) 2 tablet PO HS PRN PRN Reason: CONSTIPATION Last Admin: 05/22/17 22:01 Dose: 2 tablet Simethicone (Mylicon -) 80 mg PO Q4H PRN PRN Reason: GAS Last Admin: 05/23/17 06:23 Dose: 80 mg Witch Samantha/Glycerin (Tucks Pads -) 1 pad TP PRN PRN PRN Reason: PAIN - Objective Vital Signs: Vital Signs Temperature 98.7 F 05/23/17 10:00 Pulse Rate 71 05/23/17 10:00 Respiratory Rate 20 05/23/17 10:00 Blood Pressure 128/79 05/23/17 10:00 O2 Sat by Pulse Oximetry (%) 100 05/21/17 11:40 Constitutional: Yes: Calm Eyes: Yes: Conjunctiva Clear HENT: Yes: Atraumatic Neck: Yes: Supple Cardiovascular: Yes: S1, S2 Respiratory: Yes: CTA Bilaterally Gastrointestinal: Yes: Soft Musculoskeletal: Yes: WNL Edema: No Neurological: Yes: Oriented Psychiatric: Yes: Oriented Labs: CBC, BMP 05/22/17 06:30 05/23/17 07:45 Problem List - Problems (1) CKD (chronic kidney disease) Code(s): N18.9 - CHRONIC KIDNEY DISEASE, UNSPECIFIED Assessment/Plan Current Medications Generic Name Dose Route Start Last Admin Trade Name Freq PRN Reason Stop Dose Admin Acetaminophen 650 mg 05/21/17 08:45 05/23/17 11:04 Tylenol - PO 650 mg Q4H PRN Administration FEVER OR PAIN Acetaminophen 1,000 mg 05/21/17 22:37 05/22/17 04:47 Ofirmev Injection - IVPB 1,000 mg Q6H PRN Administration Benzocaine 1 applic 05/21/17 10:43 Americaine Ointment - TP PRN PRN PAIN Benzocaine 1 spray 05/21/17 10:43 Americaine 20% [place] - TP PRN PRN PAIN Bisacodyl 10 mg 05/22/17 10:43 Dulcolax Suppository - RC PRN PRN CONSTIPATION Diphenhydramine HCl 25 mg 05/21/17 08:45 05/22/17 00:14 Benadryl Injection - IVPUSH 25 mg Q4H PRN Administration Pruritis Enoxaparin Sodium 40 mg 05/22/17 10:00 05/23/17 09:55 Lovenox - SQ 40 mg DAILY HAYLEE Administration Ferrous Sulfate 325 mg 05/21/17 22:00 05/23/17 09:55 Feosol - PO 325 mg BID HAYLEE Administration Oxytocin/Sodium Chloride 1,000 mls @ 125 mls/hr 05/21/17 10:45 05/21/17 12:15 Normal Saline+20 Units Oxytocin - IV 125 mls/hr ASDIR HAYLEE Administration Methylergonovine Maleate 0.2 mg 05/21/17 10:43 Methergine Injection - IM Q4H PRN Excessive Bleeding (L&D) Oxycodone HCl 5 mg 05/21/17 10:43 05/23/17 11:03 Roxicodone - PO 5 mg Q4H PRN Administration PAIN LEVEL 1-5 Oxycodone HCl 10 mg 05/21/17 10:43 05/23/17 02:06 Roxicodone - PO 10 mg Q4H PRN Administration PAIN LEVEL 6-10 Senna/Docusate Sodium 2 tablet 05/21/17 10:43 05/22/17 22:01 Pericolace - PO 2 tablet HS PRN Administration CONSTIPATION Simethicone 80 mg 05/21/17 10:43 05/23/17 06:23 Mylicon - PO 80 mg Q4H PRN Administration GAS Witch Samantha/Glycerin 1 pad 05/21/17 10:43 Tucks Pads - TP PRN PRN PAIN Impression 1. CKD 2. s/p 3. microscopic hematuria Plan - renal function is improving - will check again in am - outpt renal workup - avoid nsaids - will repeat urine studies as outpt - will likely need kidney biopsy in the future once more stable - will follow Dr Cortez
[2017-05-23] MEDS: SENNOSIDES/DOCUSATE COMBO (SENNA PLUS) TABLET (UD) PO PRN (22:23)
[2017-05-24] MEDS: SIMETHICONE 80 MG TAB.CHEW (FP) PO PRN ×4 (04:35→22:13)
[2017-05-24] MEDS: oxyCODONE HCL 5 MG TABLET PO PRN ×4 (04:36→22:15)
[2017-05-24] MEDS: ACETAMINOPHEN 325 MG TABLET (FP) PO PRN ×4 (04:36→22:13)
[2017-05-24 08:37] LABS: BASOPHIL 0.6 % (0-2.0); EOSINOPHIL 2.2 % (0-4.5); MCH 25.2 pg (25.7-33.7); MCHC 32.1 g/dl (32.0-36.0); MEAN CELL VOLUME 78.4 fl (80-96); MEAN PLT VOLUME 8.2 fl (7.5-11.1); NEUTROPHILS 67.5 % (42.8-82.8); PLATELET COUNT 198 K/MM3 (134-434); RDW 20.8 % (11.6-15.6); WHITE BLOOD COUNT 11.4 K/mm3 (4.0-10.0)
[2017-05-24 08:58] LABS: ANION GAP 12 (8-16); CALCIUM 8.4 mg/dL (8.5-10.1); CO2 23 mmol/L (21-32); CREATININE 1.1 mg/dL (0.55-1.02); GLUCOSE,RANDOM 84 mg/dL (74-106)
--- NOTE | 2017-05-24 09:38 | PN ---
Post Progress Note - Subjective Subjective: Patient without acute complaints. Reports tolerating oral intake without nausea or vomiting. Ambulating without dizziness. Denies fevers or chills. Pain well controlled with oral pain medication. Pumping without issue, + colostrum. Passing flatus. Post Day: 3 Type of Delivery: Primary C/S Vital Signs: Vital Signs Temperature 97.6 F 05/24/17 09:19 Pulse Rate 76 05/24/17 09:19 Respiratory Rate 20 05/24/17 09:19 Blood Pressure 129/74 05/24/17 09:19 O2 Sat by Pulse Oximetry (%) 100 05/21/17 11:40 Breast Exam: Yes: Engorged Uterus: Yes: Fundus Firm Incision: Yes: Sutures intact. No: Redness, Oozing Abdomen/GI: Yes: Abdomen soft, Tender (mild incisional), Passing flatus, Tolerating PO Lochia: Yes: Serosa Lochia, amount: Small Extremities: Yes: Calves non-tender, Edema (trace) Activity: Ambulating - Labs Labs: CBC WBC 11.4 K/mm3 (4.0-10.0) H 05/24/17 08:15 RBC 3.60 M/mm3 (3.60-5.2) 05/24/17 08:15 Hgb 9.1 GM/dL (10.7-15.3) L 05/24/17 08:15 Hct 28.2 % (32.4-45.2) L 05/24/17 08:15 MCV 78.4 fl (80-96) L 05/24/17 08:15 MCH 25.2 pg (25.7-33.7) L 05/24/17 08:15 MCHC 32.1 g/dl (32.0-36.0) 05/24/17 08:15 RDW 20.8 % (11.6-15.6) H 05/24/17 08:15 Plt Count 198 K/MM3 (134-434) D 05/24/17 08:15 MPV 8.2 fl (7.5-11.1) 05/24/17 08:15 Neutrophils % 67.5 % (42.8-82.8) 05/24/17 08:15 Lymphocytes % 25.2 % (8-40) D 05/24/17 08:15 Monocytes % 4.5 % (3.8-10.2) 05/24/17 08:15 Eosinophils % 2.2 % (0-4.5) D 05/24/17 08:15 Basophils % 0.6 % (0-2.0) 05/24/17 08:15 Assessment/Plan 26 yo POD # 3 s/p primary CD, afebrile, vital signs stable, doing well. 1. Continue routine postoperative care. 2. Appreciate renal consult - improving cr, plan for follow up as outpatient 3. Encourage ambulation and incentive spirometer use 4. Continue oral pain medication, avoid NSAIDs 5. Anticipate discharge home postoperative day #4
[2017-05-24] MEDS: FERROUS SO4 325 MG TABLET (FP) PO SCH ×2 (10:02→22:13)
[2017-05-24] MEDS: ENOXAPARIN NA (PORCINE) 40 MG/0.4 ML DISP.SYRIN SQ SCH (10:02)
--- NOTE | 2017-05-24 10:29 | DS ---
Physical Exam-COORDINATOR OF HEALTH SERVICES Vital Signs: Vital Signs Temperature 97.6 F 05/24/17 09:19 Pulse Rate 76 05/24/17 09:19 Respiratory Rate 20 05/24/17 09:19 Blood Pressure 129/74 05/24/17 09:19 O2 Sat by Pulse Oximetry (%) 100 05/21/17 11:40 Labs: CBC, BMP 05/24/17 08:15 05/24/17 08:15 Delivery - Delivery Section: Primary Type of Anesthesia: Spinal Episiotomy/Laceration: None EBL (cc): 800 Delivery, Single - Stages of Labor Placenta: Yes: Expressed - [place] Feeding Plan Initial Plan: Exclusive throughout hospitalization Delivery, Multiple Births - Stages of Labor Delivery Baby "A" Date: 05/21/17 Time: 09:56 Placenta/Membranes "A" Date: 05/21/17 Time: 09:58 Delivery Baby "B" Date: 05/21/17 Time: 09:57 Placenta/Membranes "B" Date: 05/21/17 Time: 09:58 - Condition of Multiple Births [place] 1 (A) Cushion Sewer/Bilingual Speech Therapist Present: Yes Cushion Sewer: Charles Thomas Infant Gender: Female Weight: 4 lb 15 oz Position: OA Total Hours ROM (HRS/MINS): 2min [place] 2 (B) Cushion Sewer/Bilingual Speech Therapist Present: Yes Cushion Sewer: Charles Thomas Infant Gender: Female Weight: 3 lb 14 oz Position: Right, OT Total Hours ROM (HRS/MINS): 1min - 1 (A) 1 Minute Score: 8 [place] 1 (A) 5 Minutes Score: 9 [place] 2 (B) 1 Minute Score: 9 2 (B) 5 Minutes Score: 9 Discharge Summary Reason For Visit: LABOR ADMIT C/S Current Active Problems CKD (chronic kidney disease) (Acute) Twin Gestation Anemia Procedures: Principal: Leonel delivery Hospital Course: Patient underwent planned CD at 37 wks for twin gestation, chronic kidney disease. POD#1 noted asymptomatic anemia. She was seen by nephrology, improvement in creatinine. She remained afebrile, vital signs stable, for discharge home POD #4 - Home Medications Comprehensive Discharge Medication List: Ambulatory Orders Vit No.130/Iron/FA [ Vitamins] 1 each PO DAILY 03/04/17
--- NOTE | 2017-05-24 12:56 | PN ---
Progress Note, Physician History of Present Illness: Pt seen and examined at bedside. She is out of bed to chair. She denies shortness of breath. - Current Medication List Current Medications: Active Medications Acetaminophen (Tylenol -) 650 mg PO Q4H PRN PRN Reason: FEVER OR PAIN Last Admin: 05/24/17 07:50 Dose: 650 mg Acetaminophen (Ofirmev Injection -) 1,000 mg IVPB Q6H PRN Last Admin: 05/22/17 04:47 Dose: 1,000 mg Benzocaine (Americaine Ointment -) 1 applic TP PRN PRN PRN Reason: PAIN Benzocaine (Americaine 20% [place] -) 1 spray TP PRN PRN PRN Reason: PAIN Bisacodyl (Dulcolax Suppository -) 10 mg RC PRN PRN PRN Reason: CONSTIPATION Diphenhydramine HCl (Benadryl Injection -) 25 mg IVPUSH Q4H PRN PRN Reason: Pruritis Last Admin: 05/22/17 00:14 Dose: 25 mg Enoxaparin Sodium (Lovenox -) 40 mg SQ DAILY [facility] Last Admin: 05/24/17 10:02 Dose: 40 mg Ferrous Sulfate (Feosol -) 325 mg PO BID [facility] Last Admin: 05/24/17 10:02 Dose: 325 mg Oxytocin/Sodium Chloride (Normal Saline+20 Units Oxytocin -) 1,000 mls @ 125 mls/hr IV ASDIR [facility] Last Admin: 05/21/17 12:15 Dose: 125 mls/hr Methylergonovine Maleate (Methergine Injection -) 0.2 mg IM Q4H PRN PRN Reason: Excessive Bleeding (L&D) Senna/Docusate Sodium (Pericolace -) 2 tablet PO HS PRN PRN Reason: CONSTIPATION Last Admin: 05/23/17 22:23 Dose: 2 tablet Simethicone (Mylicon -) 80 mg PO Q4H PRN PRN Reason: GAS Last Admin: 05/24/17 07:51 Dose: 80 mg Witch Samantha/Glycerin (Tucks Pads -) 1 pad TP PRN PRN PRN Reason: PAIN - Objective Vital Signs: Vital Signs Temperature 97.6 F 05/24/17 09:19 Pulse Rate 76 05/24/17 09:19 Respiratory Rate 20 05/24/17 09:19 Blood Pressure 129/74 05/24/17 09:19 O2 Sat by Pulse Oximetry (%) 100 05/21/17 11:40 Constitutional: Yes: Calm Eyes: Yes: Conjunctiva Clear HENT: Yes: Atraumatic Cardiovascular: Yes: Regular Rate and Rhythm, S1, S2 Respiratory: Yes: CTA Bilaterally Gastrointestinal: Yes: Soft Genitourinary: Yes: WNL Musculoskeletal: Yes: WNL Edema: No Neurological: Yes: Oriented Psychiatric: Yes: Oriented Labs: CBC, BMP 05/24/17 08:15 05/24/17 08:15 Problem List - Problems (1) CKD (chronic kidney disease) Code(s): N18.9 - CHRONIC KIDNEY DISEASE, UNSPECIFIED Assessment/Plan Current Medications Generic Name Dose Route Start Last Admin Trade Name Freq PRN Reason Stop Dose Admin Acetaminophen 650 mg 05/21/17 08:45 05/24/17 07:50 Tylenol - PO 650 mg Q4H PRN Administration FEVER OR PAIN Acetaminophen 1,000 mg 05/21/17 22:37 05/22/17 04:47 Ofirmev Injection - IVPB 1,000 mg Q6H PRN Administration Benzocaine 1 applic 05/21/17 10:43 Americaine Ointment - TP PRN PRN PAIN Benzocaine 1 spray 05/21/17 10:43 Americaine 20% [place] - TP PRN PRN PAIN Bisacodyl 10 mg 05/22/17 10:43 Dulcolax Suppository - RC PRN PRN CONSTIPATION Diphenhydramine HCl 25 mg 05/21/17 08:45 05/22/17 00:14 Benadryl Injection - IVPUSH 25 mg Q4H PRN Administration Pruritis Enoxaparin Sodium 40 mg 05/22/17 10:00 05/24/17 10:02 Lovenox - SQ 40 mg DAILY HAYLEE Administration Ferrous Sulfate 325 mg 05/21/17 22:00 05/24/17 10:02 Feosol - PO 325 mg BID HAYLEE Administration Oxytocin/Sodium Chloride 1,000 mls @ 125 mls/hr 05/21/17 10:45 05/21/17 12:15 Normal Saline+20 Units Oxytocin - IV 125 mls/hr ASDIR HAYLEE Administration Methylergonovine Maleate 0.2 mg 05/21/17 10:43 Methergine Injection - IM Q4H PRN Excessive Bleeding (L&D) Senna/Docusate Sodium 2 tablet 05/21/17 10:43 05/23/17 22:23 Pericolace - PO 2 tablet HS PRN Administration CONSTIPATION Simethicone 80 mg 05/21/17 10:43 05/24/17 07:51 Mylicon - PO 80 mg Q4H PRN Administration GAS Witch Samantha/Glycerin 1 pad 05/21/17 10:43 Tucks Pads - TP PRN PRN PAIN Impression 1. CKD 2. s/p 3. microscopic hematuria 4. HOLLY Plan - renal function continues to improve - will recheck in am - will repeat ua in office - avoid nsaids - at bedside and case discussed with him as well - will follow Dr Cortez
[2017-05-24] MEDS ORDERED: oxyCODONE HCL 5 MG TABLET ONE (13:50)
[2017-05-24] MEDS: OXYTOCIN 20 UNITS in 0.9% NS 1,000 ML IV SCH ×3 (16:14→20:08)
[2017-05-24] MEDS: SENNOSIDES/DOCUSATE COMBO (SENNA PLUS) TABLET (UD) PO PRN (22:14)
[2017-05-25] MEDS: ACETAMINOPHEN 325 MG TABLET (FP) PO PRN (04:11)
[2017-05-25] MEDS: SIMETHICONE 80 MG TAB.CHEW (FP) PO PRN (04:11)
[2017-05-25] MEDS: oxyCODONE HCL 5 MG TABLET PO PRN (04:12)
[2017-05-25 07:54] LABS: ANION GAP 9 (8-16); CALCIUM 8.4 mg/dL (8.5-10.1); CO2 24 mmol/L (21-32); CREATININE 1.2 mg/dL (0.55-1.02); GLUCOSE,RANDOM 70 mg/dL (74-106)
--- NOTE | 2017-05-25 08:11 | PN ---
Progress Note (short form) - Note Progress Note: pod4 doing well, no c/o ,voids ok CBC, BMP 05/24/17 08:15 Last Vital Signs Temp Pulse Resp BP Pulse Ox 98.8 F 95 H 20 135/77 100 05/24/17 22:00 05/24/17 22:00 05/24/17 22:00 05/24/17 22:00 05/21/17 11:40 abdomen soft, no distension, no cva ext. no calf tenderness plan d/c home, follow up office 1 week, follow up with renal out patient
[2017-05-25 09:47] VITALS: BP 133/88; PULSE 91; TEMP 98
== END 2017-05-25 09:30 | disposition home or self-care (01) | DRG 540 ==
LOC: JLDR 06:55 → J3W 13:04
PROVIDERS: ADMIT Obstetrics & Gynecology; ATTEND Obstetrics & Gynecology
PROC: 10D00Z1 Extraction of Products of Conception, Low, Open Approach (ICD-10-PCS; principal; 2017-05-21)
DX: O30.043 Twin pregnancy, dichorionic/diamniotic, third trimester (principal); O99.213 Obesity complicating pregnancy, third trimester; E66.8 Other obesity; N18.9 Chronic kidney disease, unspecified; N17.9 Acute kidney failure, unspecified; Z3A.37 37 weeks gestation of pregnancy; Z37.2 Twins, both liveborn; Z68.39 Body mass index [BMI] 39.0-39.9, adult; R31.21 Asymptomatic microscopic hematuria
CPT/HCPCS: 36415; 80048; 80053; 81003; 81015; 82570; 84156; 85025; 85461; 86999